=== PATIENT | female | born 1985 | race Hispanic/Latino ===

== ENCOUNTER 2019-06-08 09:11 | Inpatient (IN) | payer BC, OTHER ==
[2019-06-08] MEDS ORDERED: Ringers Lactate 1,000 ML IV ONE ×2 (09:15→09:34)
[2019-06-08] MEDS ORDERED: MAGNESIUM SULF/STERILE WATER 1,000 ML IV ONE (09:34)
[2019-06-08] MEDS ORDERED: LABETALOL 20 MG/4ML SYRINGE IV ONE ×2 (09:37→09:54)
[2019-06-08] MEDS ORDERED: MAGNESIUM SULF/STERILE WATER 1,000 ML IV SCH (10:00)
[2019-06-08] MEDS ORDERED: NA CIT/CITRIC AC 30 ML ORAL UDC ONE (10:31)
[2019-06-08] MEDS ORDERED: METOCLOPRAMIDE 10 MG/2mL INJ ONE (10:31)
[2019-06-08] MEDS ORDERED: FAMOTIDINE 20 MG/2 ML VIAL IV ONE ×2 (10:31→10:32)
[2019-06-08] MEDS ORDERED: CEFAZOLIN/SWI 2gm 2 GM/20 ML SYR ONE (10:32)
--- NOTE | 2019-06-08 10:47 | P.OBGYNHP ---
Certification for Inpatient Patient admitted to: Inpatient With expected LOS: >2 Midnights Patient will require the following post-hospital care: None Practitioner: I am a practitioner with admitting privileges, knowledge of patient current condition, hospital course, and medical plan of care. Services: Services provided to patient in accordance with Admission requirements found in Title 42 Section 412.3 of the Code of Federal Regulations Patient History Date of Service: 06/08/19 Reason for admission: SEVERE PREECLAMPSIA History of Present Illness: Patient is a 33-year-old who presents at 36 weeks and 1 day gestation with severe preeclampsia. She has obtained care at [facility]. Patient presents to the emergency department with complaints of chest pain. I was then notified 1 hr later by the ED physician that the patient was down in the emergency room for this issue. I immediately requested that the patient be sent to Labor and delivery. Patient states that overnight she has been having this discomfort in her chest that began yesterday is a heavy feeling in her chest and then it woke her up again and 7:00 a.m.. She also had some vomiting. She states she does not feel any contractions. She denies leakage of fluid. She reports good movements. She states she has been taking medication for hypertension twice a day. She states she was told on Sunday that she has gestational diabetes. She was instructed to begin taking the medication however she did not take that medication up yet and therefore has not started it. Upon arrival to Labor and delivery her blood pressure was found to be 2006/129. Repeat blood pressure was at 191/123. 2 doses of labetalol 20 mg were given and magnesium was started immediately. 4 g load was given and then a 2 g maintenance was started. I then contacted the patient's primary OB practice. I spoke to Dr. Salas. I requested that the patient be transferred to [facility] however they felt uncomfortable due to the elevated blood pressures. Therefore I began to proceed to admit the patient for emergency delivery. Allergies No Known Allergies Allergy (Unverified 06/08/19 09:14) - Past Medical/Surgical History -: DENIES Past Surgical History: Patient denies surgical history - Social History Smoking Status: Never smoker Review of Systems 10-point ROS is otherwise unremarkable Physical Examination - Vital Signs Blood Pressure: 185/111 Pulse: 75 Respirations: 18 Pulse Ox (%): 99 Laboratory Tests 06/08/19 06/08/19 06/08/19 08:10 08:10 10:06 WBC 16.5 H Hgb 16.2 H Hct 47.2 H Plt Count 209 Uric Acid 7.8 H AST 184 H ALT 120 H Assessment and Plan - Advance Directives Does patient have a Living Will: No Does patient have a Durable POA for Healthcare: No
[2019-06-08] MEDS ORDERED: NA CHLORIDE 0.9% 1,000 ML ONE ×2 (11:14→11:48)
[2019-06-08] MEDS ORDERED: METHYLERGONOVINE 0.2MG/ML AMP IM ONE (11:20)
[2019-06-08] MEDS ORDERED: CARBOPROST TROME 250 MCG/ML IM ONE (11:20)
[2019-06-08] MEDS ORDERED: BISACODYL 10 MG RECTAL SUPP RECT PRN (11:58)
[2019-06-08] MEDS ORDERED: DOCUSATE NA/SENNA CONC 1 TAB PO PRN (11:58)
[2019-06-08] MEDS ORDERED: CARBOPROST TROME 250 MCG/ML IM PRN (11:58)
[2019-06-08] MEDS ORDERED: ACETAMINOPHEN 500 MG TAB PO PRN (11:58)
[2019-06-08] MEDS ORDERED: ONDANSETRON 4 MG (ODT) TAB PO PRN (11:58)
[2019-06-08] MEDS ORDERED: IBUPROFEN 400 MG TAB PO PRN (12:01)
--- NOTE | 2019-06-08 12:03 | P.OP ---
Nuclear Waste Management Engineer: Neisha Sparks Preoperative diagnosis: Severe Preeclampsia 36 weeks gestation remote from delivery Primary procedure: Primary low transverse section Anesthesia: Damon, Dr. Sanders Estimated blood loss: 800cc Specimen: Cord blood, Placenta Findings: Viable female, cephalic, 9/9, 6lb 50z Operative Technique: The patient was taken to the operating room where spinal anesthesia was administered without difficulty. The patient was prepped and draped in the usual sterile fashion in the dorsal supine position with a leftward tilt. A Pfannenstiel skin incision was made with the scalpel and carried through to the underlying layer of fascia using the scalpel. The fascia was incised in the midline and extended laterally using Cuevas scissors. Morgan clamps were used to elevate the superior aspect of the fascial incision, which was elevated, and the underlying rectus muscles were dissected off bluntly and using Cuevas scissors. Attention was then turned to the inferior aspect of the fascial incision, which in similar fashion was grasped with Morgan clamps, elevated, and the underlying rectus muscles were dissected off bluntly and using the Bovie. The rectus muscles were dissected in the midline. The peritoneum was identified and entered using Metzenbaum scissors; this incision was extended superiorly and inferiorly with good visualization of the bladder. The bladder blade was inserted. The vesicouterine peritoneum was identified and entered sharply using Metzenbaum scissors. This incision was extended laterally and the bladder flap was created digitally. The bladder blade was reinserted. The lower uterine segment was incised in a transverse fashion using the scalpel and extended using bandage scissors as well as manual traction. Clear fluid was noted. The was subsequently delivered. The nose and mouth were bulb suctioned. The cord was clamped and cut. The infant was subsequently handed to the awaiting nursery nurse. The placenta was delivered spontaneously intact with a three-vessel cord noted. The uterus was exteriorized and cleared of all clots and debris. The uterine incision was repaired in 2 layers using 0 vicryol sutures. Hemostasis was visualized. The vesicouterine peritoneum was reapproximated with 3 O Vicryl. The uterus was returned to the abdomen. The uterine incision was reexamined and it was noted to be hemostatic. The rectus muscles were reapproximated in the midline using 0 Vicryl. The fascia was closed with 1 Vicryl suture, the subcutaneous layer was closed with 2-0 plain gut, and the skin was closed with 3 O Vicryl on a Nigel needle. Sponge, lap, and instrument counts were correct x2. The patient was stable at the completion of the procedure and was subsequently transferred to the recovery room in stable condition. Complications: None Drain(s): Urinary catheter Transferred to: Recovery Room Condition: Good
[2019-06-08 13:18] LABS: Urine Appearance CLOUDY; Urine Blood 2+ (NEG); Urine Color ORANGE; Urine Glucose NEGATIVE (NEG); Urine Protein 2+ (NEG)
[2019-06-08 13:20] LABS: Urine Bilirubin 1+ (NEG); Urine Microscopic Reflex ORDER UMIC
[2019-06-08 13:27] LABS: Urine Bacteria <20 /HPF (<20); Urine Culture Reflex Order REFLEXED; Urine Mucus LIGHT /HPF (NONE SEEN)
[2019-06-08 13:28] LABS: Urine Amorphous Sediment 1+ /HPF (NONE SEEN)
[2019-06-08 18:04] VITALS: BMI 37.6
[2019-06-09] MEDS: KETOROLAC 30 MG/ML INJ IV PRN ×3 (02:10→20:11)
[2019-06-09 04:43] LABS: Bilirubin Total 1.7 mg/dL (0.2-1.0); Potassium 4.1 mmol/L (3.5-5.1); Protein, Total 5.4 g/dL (6.4-8.2)
[2019-06-09 05:38] LABS: Absolute Lymphocytes (CBC) 2.9 K/uL (0.7-4.9); Basophils % 0.3 % (0-1.3); Hematocrit 35.1 % (36.0-45.0); Lymphocytes % 24.1 % (15.3-44.8); MPV 8.3 fL (7.6-11.3); RBC Red Blood Cell Count 4.24 M/uL (3.86-4.86)
[2019-06-09 06:21] LABS: Anisocytosis 1+; Blood Morphology Comment NOTED (NOT SEEN); Platelet Estimate DECR; Poikilocytosis 1+; Urine White Blood Cell Casts OK
[2019-06-09 08:11] LABS: Absolute Lymphocytes (CBC) 2.1 K/uL (0.7-4.9); Basophils % 0.2 % (0-1.3); Hematocrit 35.7 % (36.0-45.0); Lymphocytes % 19.6 % (15.3-44.8); MPV 8.4 fL (7.6-11.3); RBC Red Blood Cell Count 4.36 M/uL (3.86-4.86)
[2019-06-09 08:14] LABS: Protime INR 0.93
[2019-06-09 08:23] LABS: Albumin 1.9 g/dL (3.4-5.0); Bilirubin Direct 0.9 mg/dL (0-0.2); Bilirubin Total 1.3 mg/dL (0.2-1.0); Protein, Total 5.4 g/dL (6.4-8.2); Uric Acid 7.3 mg/dL (2.6-6.0)
[2019-06-09] MEDS: Ringers Lactate 1,000 ML IV SCH ×2 (08:40→19:00)
[2019-06-09] MEDS ORDERED: LABETALOL HCL 100 MG/20 ML IV ONE (09:40)
[2019-06-09] MEDS: Oxycodone HCl/Acetaminophen 1 TAB TAB PO PRN ×3 (10:00→18:00)
[2019-06-09] MEDS ORDERED: LABETALOL HCL 100 MG TAB PO SCH (10:00)
[2019-06-09] MEDS ORDERED: LABETALOL HCL 100 MG/20 ML ONE (10:01)
[2019-06-09 12:46] LABS: Absolute Lymphocytes (CBC) 2.2 K/uL (0.7-4.9); Basophils % 0.2 % (0-1.3); Hematocrit 32.4 % (36.0-45.0); Lymphocytes % 20.6 % (15.3-44.8); RBC Red Blood Cell Count 3.96 M/uL (3.86-4.86)
[2019-06-09 12:58] LABS: Protime INR 0.92
[2019-06-09 13:03] LABS: Albumin 1.8 g/dL (3.4-5.0); Bilirubin Direct 0.6 mg/dL (0-0.2); Potassium 3.9 mmol/L (3.5-5.1); Protein, Total 5.1 g/dL (6.4-8.2); Uric Acid 7.4 mg/dL (2.6-6.0)
[2019-06-09] MEDS ORDERED: PHENYLEPHRINE 0.5% NOSE 15ML NAS PRN (17:26)
[2019-06-09 17:47] LABS: Absolute Lymphocytes (CBC) 2.8 K/uL (0.7-4.9); Basophils % 0.5 % (0-1.3); Hematocrit 35.8 % (36.0-45.0); Lymphocytes % 26.1 % (15.3-44.8); MPV 8.8 fL (7.6-11.3); RBC Red Blood Cell Count 4.32 M/uL (3.86-4.86)
[2019-06-09] MEDS ORDERED: dexAMETHasone 10 MG/ML VIAL IM ONE (17:57)
[2019-06-09 18:03] LABS: ALT/SGPT 82 U/L (12-78)
[2019-06-09] MEDS ORDERED: Ringers Lactate 1,000 ML IV ONE (18:48)
[2019-06-09] MEDS ORDERED: Ringers Lactate 1,000 ML IV SCH (19:00)
--- NOTE | 2019-06-09 21:26 | P.PN ---
Date of Service: 06/09/19 Patient is a 33 y/o post op day 1 from emergent primary section due to severe preeclampsia remote from delivery. Overall the patient has been improving today. She is tolerating a regular diet. Her pain is well controlled. She did have a significant decrease in her platelet count since the delivery. Her urine output has been going well from 100-200cc per hour. Later in the day patient began to have a significant nose bleed. She saturated 2 large gauze pads. Once I was notified I requested that labs be repeated and the patient receive a nasal spray that has some vasocontriction such as afrin as well as ice packs. Patient received this treatment and responded well to it. Her bleeding has stopped. She also had some vaginal bleeding occur as well. Patient was then diagnosed with HELLP syndrome. Labs are revealing that her platelet count is increasing. Patient has been given 10 mg dexamethasone to help increase her platelet count. Magnesium sulfate has been discontinued. BP 141/83 Pulse 92 Laboratory Tests 06/09/19 06/09/19 06/09/19 04:08 04:08 04:08 WBC 12.1 H D Hgb 12.0 D Hct 35.1 L D Plt Count 74 L* D Magnesium 6.4 H* D Direct Bilirubin AST 131 H ALT 100 H Lactate Dehydrogenase 06/09/19 06/09/19 06/09/19 07:57 07:57 12:20 WBC 10.8 10.6 Hgb 12.3 11.1 L Hct 35.7 L 32.4 L Plt Count 74 L* 83 L* Magnesium Direct Bilirubin 0.9 H AST 111 H ALT 92 H Lactate Dehydrogenase 06/09/19 06/09/19 06/09/19 12:20 17:39 17:39 WBC 10.7 Hgb 12.1 Hct 35.8 L Plt Count 95 L* Magnesium Direct Bilirubin 0.6 H AST 91 H ALT 80 H 82 H Lactate Dehydrogenase 412 H GEN: resting comfortably in bed Head/Neck: NCAT/supple ABD: soft/ mildly tender, no garding; dressing in place EXT: +1 edema bilaterally 1. S/P primary section day 1 - merritt catheter removed - pain well managed - pt to begin ambulating - advanced to regular diet - trying to breast feed and bonding well with the baby - will remove dressing tomorrow 2. Severe preeclampsia superimposed on likely chronic hypertension - delivered - labetalol increased to 200mg BID -magnesium given for 24 hours - has been discontinued - patient is diuresing well - continue BP monitoring - repeat labs in AM 3. HELLP Syndrome - platelets now increasing - high dose steroids being given to increase platelet count and overall improvement in HELLP - liver enzymes improve - LDH at 412 - will repeat in AM along with all PIH labs
[2019-06-09] MEDS: LABETALOL HCL 100 MG TAB PO SCH (21:45)
[2019-06-09 22:45] VITALS: O2SAT 98
[2019-06-10] MEDS ORDERED: dexAMETHasone 10 MG/ML VIAL ONE (03:00)
[2019-06-10 04:28] LABS: Absolute Lymphocytes (CBC) 0.6 K/uL (0.7-4.9); Basophils % 0.1 % (0-1.3); Hematocrit 32.9 % (36.0-45.0); Lymphocytes % 5.7 % (15.3-44.8); MPV 8.8 fL (7.6-11.3); RBC Red Blood Cell Count 3.96 M/uL (3.86-4.86)
[2019-06-10 04:51] LABS: Albumin 2.2 g/dL (3.4-5.0); Bilirubin Total 0.5 mg/dL (0.2-1.0); Potassium 4.5 mmol/L (3.5-5.1)
[2019-06-10 04:53] LABS: Blood Morphology Comment NOT SEEN (NOT SEEN); Platelet Estimate DECR; Urine White Blood Cell Casts OK
[2019-06-10] MEDS ORDERED: dexAMETHasone 10 MG/ML VIAL IV ONE (06:00)
[2019-06-10] MEDS: Oxycodone HCl/Acetaminophen 1 TAB TAB PO PRN ×2 (06:12→20:00)
[2019-06-10] MEDS: LABETALOL HCL 100 MG TAB PO SCH ×2 (09:00→21:00)
[2019-06-10 19:00] LABS: Absolute Lymphocytes (CBC) 1.3 K/uL (0.7-4.9); Basophils % 0.3 % (0-1.3); Hematocrit 31.5 % (36.0-45.0); Lymphocytes % 9.9 % (15.3-44.8); MPV 8.8 fL (7.6-11.3)
[2019-06-10] MEDS ORDERED: dexAMETHasone 10 MG/ML VIAL IM ONE (19:00)
[2019-06-10 19:22] LABS: ALT/SGPT 59 U/L (12-78); AST/SGOT 43 U/L (15-37)
--- NOTE | 2019-06-10 22:10 | P.PN ---
Date of Service: 06/10/19 Patient is a 33 y/o post op day 2 from emergent primary section due to severe preeclampsia remote from delivery. Overall the patient is doing better. She is not having any more nose bleeds. Her vaginal bleeding is minimal. She is tolerating a regular diet. She is responding to treatment with steroids. IV fluids have been discontinued. BP 141/83 Pulse 92 Laboratory Tests Laboratory Tests 06/10/19 06/10/19 06/10/19 04:00 04:00 18:52 WBC 11.1 H 13.1 H D Hgb 11.1 L 10.6 L Hct 32.9 L 31.5 L Plt Count 96 L* 144 L D AST 59 H ALT 74 Lactate Dehydrogenase 365 H 06/10/19 18:52 WBC Hgb Hct Plt Count AST 43 H ALT 59 Lactate Dehydrogenase 314 H 06/09/19 06/09/19 06/09/19 04:08 04:08 04:08 WBC 12.1 H D Hgb 12.0 D Hct 35.1 L D Plt Count 74 L* D Magnesium 6.4 H* D Direct Bilirubin AST 131 H ALT 100 H Lactate Dehydrogenase 06/09/19 06/09/19 06/09/19 07:57 07:57 12:20 WBC 10.8 10.6 Hgb 12.3 11.1 L Hct 35.7 L 32.4 L Plt Count 74 L* 83 L* Magnesium Direct Bilirubin 0.9 H AST 111 H ALT 92 H Lactate Dehydrogenase 06/09/19 06/09/19 06/09/19 12:20 17:39 17:39 WBC 10.7 Hgb 12.1 Hct 35.8 L Plt Count 95 L* Magnesium Direct Bilirubin 0.6 H AST 91 H ALT 80 H 82 H Lactate Dehydrogenase 412 H GEN: resting comfortably in bed Head/Neck: NCAT/supple ABD: soft/ mildly tender, no garding; incision is clean, dry, and intact EXT: +1 edema bilaterally 1. S/P primary section day 2 - pain well managed - pt ambulating - regular diet - trying to breast feed and bonding well with the baby - dressing removed incision looks great 2. Severe preeclampsia superimposed on likely chronic hypertension - delivered - labetalol increased to 200mg BID -magnesium given for 24 hours - has been discontinued - patient is diuresing well - continue BP monitoring - repeat labs in AM 3. HELLP Syndrome - platelets now increasing - high dose steroids being given to increase platelet count and overall improvement in HELLP - liver enzymes, platelets and LDH all improving
[2019-06-11] MEDS: Oxycodone HCl/Acetaminophen 1 TAB TAB PO PRN ×2 (03:58→10:31)
[2019-06-11 04:41] LABS: Absolute Lymphocytes (CBC) 1.3 K/uL (0.7-4.9); Basophils % 0.1 % (0-1.3); Lymphocytes % 9.8 % (15.3-44.8); MPV 8.7 fL (7.6-11.3); RBC Red Blood Cell Count 3.57 M/uL (3.86-4.86)
[2019-06-11 05:07] LABS: Albumin 2.2 g/dL (3.4-5.0); Bilirubin Total 0.4 mg/dL (0.2-1.0); Potassium 4.4 mmol/L (3.5-5.1); Protein, Total 5.9 g/dL (6.4-8.2)
[2019-06-11] MEDS ORDERED: dexAMETHasone 10 MG/ML VIAL IV ONE (06:00)
[2019-06-11] MEDS ORDERED: dexAMETHasone 10 MG/ML VIAL IM ONE (06:00)
[2019-06-11] MEDS: LABETALOL HCL 100 MG TAB PO SCH ×2 (08:50→08:59)
[2019-06-11 12:24] VITALS: BP 154/82; TEMP 97.8
[2019-06-11] MEDS ORDERED: Tdap (Diph,Pertuss(Acell),Tet Vac) 0.5 ML SYR IMVAC ONE (12:40)
--- NOTE | 2019-06-11 21:58 | P.DS ---
Admission Date: 06/08/19 Discharge Date: 06/11/19 Disposition: ROUTINE DISCHARGE Discharge Condition: GOOD Reason for Admission: SEVERE PREECLAMPSIA Brief History of Present Illness: Patient is a 33-year-old who presents at 36 weeks and 1 day gestation with severe preeclampsia. She has obtained care at [facility]. Patient presents to the emergency department with complaints of chest pain. I was then notified 1 hr later by the ED physician that the patient was down in the emergency room for this issue. I immediately requested that the patient be sent to Labor and delivery. Patient states that overnight she has been having this discomfort in her chest that began yesterday is a heavy feeling in her chest and then it woke her up again and 7:00 a.m.. She also had some vomiting. She states she does not feel any contractions. She denies leakage of fluid. She reports good movements. She states she has been taking medication for hypertension twice a day. She states she was told on Sunday that she has gestational diabetes. She was instructed to begin taking the medication however she did not take that medication up yet and therefore has not started it. Upon arrival to Labor and delivery her blood pressure was found to be 2006/129. Repeat blood pressure was at 191/123. 2 doses of labetalol 20 mg were given and magnesium was started immediately. 4 g load was given and then a 2 g maintenance was started. I then contacted the patient's primary OB practice. I spoke to Dr. Salas. I requested that the patient be transferred to [facility] however they felt uncomfortable due to the elevated blood pressures. Therefore I began to proceed to admit the patient for emergency delivery. Vital Signs/Physical Exam: Temp Pulse Resp BP Pulse Ox 97.8 F 82 18 154/82 H 99 06/11/19 12:00 06/11/19 12:00 06/11/19 12:00 06/11/19 12:00 06/10/19 20:00 Laboratory Data at Discharge: WBC 13.4 K/uL (4.3-10.9) H 06/11/19 04:17 Hgb 10.2 g/dL (12.0-15.0) L 06/11/19 04:17 Hct 30.0 % (36.0-45.0) L 06/11/19 04:17 Plt Count 142 K/uL (152-406) L 06/11/19 04:17 PT 10.9 SECONDS (9.5-12.5) 06/09/19 12:20 INR 0.92 06/09/19 12:20 APTT 31.9 SECONDS (24.3-36.9) 06/09/19 12:20 Sodium 139 mmol/L (136-145) 06/11/19 04:17 Potassium 4.4 mmol/L (3.5-5.1) 06/11/19 04:17 BUN 18 mg/dL (7-18) 06/11/19 04:17 Creatinine 0.94 mg/dL (0.55-1.3) 06/11/19 04:17 Glucose 156 mg/dL (74-106) H 06/11/19 04:17 Uric Acid 7.4 mg/dL (2.6-6.0) H 06/09/19 12:20 Magnesium 6.4 mg/dL (1.8-2.4) H* D 06/09/19 04:08 Total Bilirubin 0.4 mg/dL (0.2-1.0) 06/11/19 04:17 AST 40 U/L (15-37) H 06/11/19 04:17 ALT 54 U/L (12-78) 06/11/19 04:17 Alkaline Phosphatase 139 U/L (45-117) H 06/11/19 04:17 Home Medications: Nifedipine [Nifedipine ER] 30 mg PO BID* 06/08/19 Pnv95/Ferrous Fumarate/FA [Prenavite Tablet] 1 each PO 1X 06/08/19 Codeine/APAP [Tylenol W/Codeine #3 tab] 1 tab PO Q6HP PRN #24 tab 06/11/19 Labetalol HCl [Trandate] 200 mg PO BID #60 tablet 06/11/19 New Medications: Codeine/APAP [Tylenol W/Codeine #3 tab] 1 tab PO Q6HP PRN #24 tab PRN Reason: Pain Scale 8-10 (Severe) Labetalol HCl [Trandate] 200 mg PO BID #60 tablet Diet: Low sodium Activity: No lifting more than 10 lbs Followup: Anam Mack, [ACTIVE - CAN ADMIT] - (Follow up in OB's office)
== END 2019-06-11 13:55 | disposition home or self-care (01) | DRG 788 ==
LOC: L&D 09:11 → 2ND-WC 10:03
PROVIDERS: ADMIT Student in an Organized Health Care Education/Training Program; ATTEND Student in an Organized Health Care Education/Training Program
PROC: 10D00Z1 Extraction of Products of Conception, Low, Open Approach (ICD-10-PCS; principal; 2019-06-08 10:50)
DX: O14.14 Severe pre-eclampsia complicating childbirth (principal); Z3A.36 36 weeks gestation of pregnancy; Z37.0 Single live birth
CPT/HCPCS: 36415; 71045; 80048; 80053; 80076; 81003; 81015; 83615; 83690; 83735; 83880; 84450; 84460; 84484; 84550; 85025; 85610; 85730; 86850; 86900; 86901; 87086; 87088; 88307; 90471; 90715; 93005; 96374; 96375; 99285; J0690; J1100; J2210; J2370; J2405; J2590; J2765; J3010; J3475; J7030

== ENCOUNTER → 2019-06-08 | Emergency (ER) | payer BC, OTHER ==
[~2019-06-08] MED LIST: EPHEDRINE SULF 50 MG/ML VIAL ONE; FENTANYL CITR 100 MCG/2 ML ONE; LABETALOL HCL 100 MG/20 ML ONE; MAGNE/ALUM HYDROXD 30 ML UCUP ONE; MORPHINE SULFATE/PF 1 MG/ML (10 ML AMP) ONE; ONDANSETRON 4 MG/2 ML VIAL ONE; OXYTOCIN 10 UNIT/ML ML IV ONE; Phenylephrine HCl 10 MG/ML 1 ML VIAL ONE
--- OUTSIDE RECORDS SUMMARY | 2019-06-08 07:52 | XMS REPORT ---
:1985 Author Organization eClinicalWorks Care Team Providers Name Role Phone Carleen Downey Provider Role Unavailable Allergies No Known Allergies Problems Problem Type Condition Code Onset Dates Condition Status Problem Hirsutism L68.0 Active Problem Infertility, female N97.9 Active Problem Amenorrhea N91.2 Active Problem BMI 39.0-39.9,adult Z68.39 Active Problem H/O polycystic ovarian syndrome Z87.42 Active Problem Secondary hypertension I15.9 Active Medications No Known Medications Results No Known Results Summary Purpose eClinicalWorks Submission
--- OUTSIDE RECORDS SUMMARY | 2019-06-08 07:52 | XMS REPORT ---
:1985 Author Organization eClinicalWorks Care Team Providers Name Role Phone Carleen Downey Provider Role Unavailable Allergies, Adverse Reactions, Alerts Substance Reaction Event Type N.K.D.A. Info Not Available Non Drug Allergy Problems Problem Type Condition Code Onset Dates Condition Status Assessment Infertility, female N97.9 Active Assessment H/O polycystic ovarian syndrome Z87.42 Active Assessment Amenorrhea N91.2 Active Problem Hirsutism L68.0 Active Problem Infertility, female N97.9 Active Problem Amenorrhea N91.2 Active Problem BMI 39.0-39.9,adult Z68.39 Active Assessment Well woman exam with routine Z01.419 Active gynecological exam Problem H/O polycystic ovarian syndrome Z87.42 Active Problem Secondary hypertension I15.9 Active Assessment Hirsutism L68.0 Active Assessment Secondary hypertension I15.9 Active Assessment BMI 39.0-39.9,adult Z68.39 Active Medications No Known Medications Results No Known Results Summary Purpose eClinicalWorks Submission
[2019-06-08 08:34] LABS: Absolute Lymphocytes (CBC) 4.5 K/uL (0.7-4.9); Basophils % 0.3 % (0-1.3); Eosinophils % 0.3 % (0-4.4); Hematocrit 47.2 % (36.0-45.0); Lymphocytes % 27.2 % (15.3-44.8); MPV 9.4 fL (7.6-11.3); Monocytes % 6.6 % (3.3-12.3); RBC Red Blood Cell Count 5.81 M/uL (3.86-4.86)
[2019-06-08 08:35] LABS: Protime INR 0.9
--- NOTE | 2019-06-08 08:40 | ER ---
Nurse's Notes [facility] Name: Lulu Becerra Age: 33 yrs Sex: Female : 1985 Arrival Date: 06/08/2019 Time: 07:54 Bed 5 Private MD: Diagnosis: Pre-eclampsia Presentation: 06/08 07:55 Presenting complaint: Patient states: i started having chest pain since yesterday, hj heavy feeling in my chest and i was awaken to it again this 7 am; pt is vomiting at triage; denies abd contraction and back pain; LMP- 09/26/18; 26 weeks AGE. Transition of care: patient was not received from another setting of care. Onset of symptoms was June 08, 2019. Risk Assessment: Do you want to hurt yourself or someone else? Patient reports no desire to harm self or others. Initial Sepsis Screen: Does the patient meet any 2 criteria? No. Patient's initial sepsis screen is negative. Does the patient have a suspected source of infection? No. Patient's initial sepsis screen is negative. Care prior to arrival: None. 07:55 Method Of Arrival: Ambulatory 07:55 Acuity: VITA 3 hj Triage Assessment: 07:55 General: Appears in no apparent distress. uncomfortable, Behavior is cooperative, bp anxious, crying. Pain: Complains of pain in chest. RENAL NURSE: 07:57 [facility] 09/26/2018 Historical: - Allergies: 07:57 No Known Allergies; - Home Meds: 07:57 None [Active]; - PMHx: 07:57 None; - PSHx: 07:57 None; - Immunization history:: Adult Immunizations up to date. - Social history:: Smoking status: Patient/guardian denies using tobacco, Patient/guardian denies using alcohol. - Ebola Screening: : Patient negative for fever greater than or equal to 101.5 degrees Fahrenheit, and additional compatible Ebola Virus Disease symptoms Patient denies exposure to infectious person Patient denies travel to an Ebola-affected area in the 21 days before illness onset. Screenin:55 Abuse screen: Denies threats or abuse. Denies injuries from another. Nutritional bp screening: No deficits noted. Tuberculosis screening: No symptoms or risk factors identified. Fall Risk None identified. Assessment: 07:57 General: Appears in no apparent distress. uncomfortable, Behavior is cooperative, bp anxious, crying. Pain: Complains of pain in chest Pain does not radiate. Pain currently is 10 out of 10 on a pain scale. Neuro: Level of Consciousness is awake, alert, obeys commands, Oriented to person, place, time, situation, Appropriate for age. Cardiovascular: Reports chest pain, shortness of breath, Capillary refill < 3 seconds Patient's skin is warm and dry. Respiratory: Airway is patent Respiratory effort is even, unlabored, Respiratory pattern is regular, symmetrical. GI: No signs and/or symptoms were reported involving the gastrointestinal system. : No signs and/or symptoms were reported regarding the genitourinary system. EENT: No signs and/or symptoms were reported regarding the EENT system. Derm: No signs and/or symptoms reported regarding the dermatologic system. Musculoskeletal: No signs and/or symptoms reported regarding the musculoskeletal system. 08:19 Reassessment: family requested to be transferred to [facility]; bp requested to contact OB [facility]; Dr. iVrgilio Christine, [phone];. Vital Signs: 07:57 Weight 93.44 kg; Height 5 ft. 2 in. (157.48 cm); Pain 10/10; hj 07:57 BP 167 / 133; Pulse 117; Resp 22; Temp 97.8(TE); Pulse Ox 100% on R/A; bp 08:20 BP 165 / 119; Pulse 80; Resp 18; Pulse Ox 98% on R/A; bp 08:27 BP 163 / 121; Pulse 85; Resp 22; Pulse Ox 98% ; Pain 7/10; bp 07:57 Body Mass Index 37.68 (93.44 kg, 157.48 cm) Vitals: 08:38 Heart Tones: 170bpm. dh3 ED Course: 07:54 Patient arrived in ED. mr 07:56 Triage completed. hj 07:57 Dalton Andrade, RN is Primary Nurse. hj 07:57 Arm band placed on right wrist. hj 07:57 Patient has correct armband on for positive identification. Placed in gown. Bed in low bp position. Call light in reach. Side rails up X 1. Adult w/ patient. 07:58 Virgilio Calabrese MD is Attending Physician. gs 08:13 Initial lab(s) drawn, by wa, sent to lab. Inserted saline lock: 20 gauge in right bp antecubital area, using aseptic technique. ,using aseptic technique. Arvin Hernandez RN. 08:25 XRAY Chest (1 view) In Process Unspecified. EDNE 08:38 Vandana Mack MD is Hospitalizing Provider. 09:01 No provider procedures requiring assistance completed. Patient admitted, IV remains in bp place. intact. Administered Medications: 08:15 Drug: Zofran 4 mg Route: IVP; Site: right antecubital; bp 08:35 Follow up: Response: Nausea is decreased bp 08:15 Drug: Maalox Suspension (200 mg-200 mg-20 mg/5 mL) 30 ml Route: PO; bp 08:35 Follow up: Response: No adverse reaction bp 08:15 Drug: Labetalol 10 mg Route: IVP; Site: right antecubital; bp 08:34 Follow up: Response: No adverse reaction; Blood pressure is unchanged bp 08:15 Drug: fentaNYL (PF) 25 mcg Route: IVP; Site: right antecubital; bp 08:34 Follow up: Response: Pain is unchanged, physician notified bp 08:32 Drug: Labetalol 10 mg Route: IVP; Site: right antecubital; bp 08:37 Follow up: Response: No adverse reaction hj 08:36 Not Given ( cancelled order; bring pt up to L\T\D;): Labetalol 20 mg IVP once over 2 hj mins Outcome: 08:38 Decision to Hospitalize by Provider. 09:01 Admitted to L \T\ D, accompanied by nurse, accompanied by tech, family with patient, via bp stretcher, on monitor, with chart, Report called to YANICK Fox 09:01 Condition: stable 09:01 Instructed on the need for admit, Demonstrated understanding of instructions. 09:02 Patient left the ED. bp Signatures: Dispatcher [employer] [facility] RadamesRajni Henry, RN RN hj Herrera, [facility] Virgilio Calabrese MD MD gs Peltier, Brian, RN RN bp Corrections: (The following items were deleted from the chart) 08:28 08:19 Reassessment: family requested to be transferred to [facility] bp Heck; requested to contact [facility]; bp
--- NOTE | 2019-06-08 08:40 | EDPHYS ---
Physician Documentation [facility] Name: Lulu Becerra Age: 33 yrs Sex: Female : 1985 Arrival Date: 06/08/2019 Time: 07:54 Bed 5 Private MD: ED Physician Virgilio Calabrese HPI: 06/08 08:40 This 33 yrs old Female presents to ER via Ambulatory with complaints of Chest gs Pain. 08:40 The patient or guardian reports chest pain that is located primarily in the epigastric gs area. The pain does not radiate. Associated signs and symptoms: Pertinent positives: shortness of breath. The chest pain is described as squeezing. Duration: The patient or guardian reports a single episode, that is now resolved. Modifying factors: The symptoms are alleviated by nothing. the symptoms are aggravated by nothing. Severity of pain: At its worst the pain was severe in the emergency department the pain is unchanged. The patient has not experienced similar symptoms in the past, onset last evening persistent more severe. COUNSELOR AID: 07:57 LMP 09/26/2018 Historical: - Allergies: 07:57 No Known Allergies; - Home Meds: 07:57 None [Active]; - PMHx: 07:57 None; - PSHx: 07:57 None; - Immunization history:: Adult Immunizations up to date. - Social history:: Smoking status: Patient/guardian denies using tobacco, Patient/guardian denies using alcohol. - Ebola Screening: : Patient negative for fever greater than or equal to 101.5 degrees Fahrenheit, and additional compatible Ebola Virus Disease symptoms Patient denies exposure to infectious person Patient denies travel to an Ebola-affected area in the 21 days before illness onset. ROS: 08:40 All other systems are negative. gs Exam: 08:40 Head/Face: Normocephalic, atraumatic. Eyes: Pupils equal round and reactive to light, gs extra-ocular motions intact. Lids and lashes normal. Conjunctiva and sclera are non-icteric and not injected. Cornea within normal limits. Periorbital areas with no swelling, redness, or edema. ENT: Nares patent. No nasal discharge, no septal abnormalities noted. Tympanic membranes are normal and external auditory canals are clear. Oropharynx with no redness, swelling, or masses, exudates, or evidence of obstruction, uvula midline. Mucous membranes moist. Neck: Trachea midline, no thyromegaly or masses palpated, and no cervical lymphadenopathy. Supple, full range of motion without nuchal rigidity, or vertebral point tenderness. No Meningismus. Chest/axilla: Normal chest wall appearance and motion. Nontender with no deformity. No lesions are appreciated. 08:40 Respiratory: Lungs have equal breath sounds bilaterally, clear to auscultation and percussion. No rales, rhonchi or wheezes noted. No increased work of breathing, no retractions or nasal flaring. Back: No spinal tenderness. No costovertebral tenderness. Full range of motion. Skin: Warm, dry with normal turgor. Normal color with no rashes, no lesions, and no evidence of cellulitis. MS/ Extremity: Pulses equal, no cyanosis. Neurovascular intact. Full, normal range of motion. Neuro: Awake and alert, GCS 15, oriented to person, place, time, and situation. Cranial nerves II-XII grossly intact. Motor strength 5/5 in all extremities. Sensory grossly intact. Cerebellar exam normal. Normal gait. 08:40 Constitutional: The patient appears alert, awake, in obvious distress, severely distressed. 08:40 Cardiovascular: Rate: tachycardic, Rhythm: regular. 08:40 ECG was reviewed by the Attending Physician. 08:40 Abdomen/GI: Inspection: gravid appearance, is noted, Palpation: nontender, in all quadrants, fht 170. Vital Signs: 07:57 Weight 93.44 kg; Height 5 ft. 2 in. (157.48 cm); Pain 10/10; hj 07:57 BP 167 / 133; Pulse 117; Resp 22; Temp 97.8(TE); Pulse Ox 100% on R/A; bp 08:20 BP 165 / 119; Pulse 80; Resp 18; Pulse Ox 98% on R/A; bp 08:27 BP 163 / 121; Pulse 85; Resp 22; Pulse Ox 98% ; Pain 7/10; bp 07:57 Body Mass Index 37.68 (93.44 kg, 157.48 cm) MDM: 08:06 Patient medically screened. 08:40 Differential diagnosis: gastroesophageal reflux disease (GERD), preeclampsia, gs eclampsia. Data reviewed: vital signs, nurses notes. 08:40 Response to treatment: the patient's symptoms have mildly improved after treatment, and gs as a result, I will admit patient. Physician consultation: Vandana Mack MD and will see patient ld. 06/08 08:08 Order name: Basic Metabolic Panel 06/08 08:08 Order name: CBC with Diff 06/08 08:08 Order name: LFT's 06/08 08:08 Order name: Magnesium 06/08 08:08 Order name: NT PRO-BNP 06/08 08:08 Order name: PT-INR; Complete Time: 08:39 gs 06/08 08:08 Order name: Troponin (emerg Dept Use Only) 06/08 08:08 Order name: XRAY Chest (1 view) 06/08 08:08 Order name: Lipase 06/08 08:08 Order name: Basic Metabolic Panel EDMO 06/08 08:08 Order name: CBC with Automated Diff; Complete Time: 08:39 EDMS 06/08 08:10 Order name: Liver (Hepatic) Function EDMS 06/08 08:10 Order name: Magnesium EDMO 06/08 07:57 Order name: EKG; Complete Time: 07:58 hj 06/08 08:08 Order name: EKG; Complete Time: 08:10 gs 06/08 08:08 Order name: Cardiac monitoring; Complete Time: 08:08 06/08 08:08 Order name: EKG - Nurse/Tech; Complete Time: 08:08 06/08 08:08 Order name: IV Saline Lock; Complete Time: 08:17 06/08 08:08 Order name: Labs collected and sent; Complete Time: 08:08 06/08 08:08 Order name: O2 Per Protocol; Complete Time: 08:09 06/08 08:08 Order name: O2 Sat Monitoring; Complete Time: 08:09 06/08 08:08 Order name: Heart Tones; Complete Time: 08:35 gs EC:40 Rate is 116 beats/min. Rhythm is regular. QRS interval is normal. No Q waves. T waves gs are Normal. No ST changes noted. Clinical impression: Abnormal EKG without significant change. Interpreted by me. Administered Medications: 08:15 Drug: Zofran 4 mg Route: IVP; Site: right antecubital; bp 08:35 Follow up: Response: Nausea is decreased bp 08:15 Drug: Maalox Suspension (200 mg-200 mg-20 mg/5 mL) 30 ml Route: PO; bp 08:35 Follow up: Response: No adverse reaction bp 08:15 Drug: Labetalol 10 mg Route: IVP; Site: right antecubital; bp 08:34 Follow up: Response: No adverse reaction; Blood pressure is unchanged bp 08:15 Drug: fentaNYL (PF) 25 mcg Route: IVP; Site: right antecubital; bp 08:34 Follow up: Response: Pain is unchanged, physician notified bp 08:32 Drug: Labetalol 10 mg Route: IVP; Site: right antecubital; bp 08:37 Follow up: Response: No adverse reaction hj 08:36 Not Given ( cancelled order; bring pt up to L\T\D;): Labetalol 20 mg IVP once over 2 hj mins Disposition: 06/08/19 08:38 Hospitalization ordered by Vandana Mack for Observation. Preliminary diagnosis is Pre-eclampsia. - [facility]. - Status is Observation. bp - Condition is Guarded. - Problem is new. - Symptoms have improved. UTI on Admission? No Signatures: Dispatcher [employer] EDMS Dalton Andrade RN RN Virgilio Calabrese MD MD Arvin Hernandez, RN RN bp Corrections: (The following items were deleted from the chart) 09:02 08:38 Hospitalization Ordered by Vandana Mack MD for Observation. Preliminary diagnosis bp is Pre-eclampsia. Bed requested for [facility]. Status is Observation. Condition is Guarded. Problem is new. Symptoms have improved. UTI on Admission? No.
[2019-06-08 08:56] LABS: ALT/SGPT 120 U/L (12-78); AST/SGOT 184 U/L (15-37); Albumin 2.6 g/dL (3.4-5.0); Alkaline Phosphatase 230 U/L (45-117); BUN Blood Urea Nitrogen 10 mg/dL (7-18); Bicarbonate 20 mmol/L (21-32); Bilirubin Direct 0.9 mg/dL (0-0.2); Bilirubin Total 1.4 mg/dL (0.2-1.0); Glucose Level 135 mg/dL (74-106); Lipase 376 U/L (73-393); Magnesium 1.9 mg/dL (1.8-2.4); NT PRO-BNP 31 pg/mL (<125); Potassium 3.8 mmol/L (3.5-5.1); Protein, Total 7.3 g/dL (6.4-8.2); Sodium Level 141 mmol/L (136-145); Troponin (Emerg Dept Use Only) < 0.02 ng/mL (0.0-0.045)
[2019-06-08 09:09] VITALS: TEMP 97.8
[2019-06-08 09:10] VITALS: O2SAT 98
[2019-06-08 09:12] VITALS: BP 163/121
--- NOTE | 2019-06-08 13:01 | RAD REPORT ---
EXAM DESCRIPTION: RAD - Chest Single View - 06/08/2019 8:24 am CLINICAL HISTORY: CHEST PAIN Chest pain. COMPARISON: No comparisons FINDINGS: Portable technique limits examination quality. The lungs are grossly clear. The heart is normal in size. No displaced fractures. IMPRESSION: No acute intrathoracic process suspected.
--- NOTE | 2019-06-09 10:22 | EKG ---
Test Date: 2019-06-08 Test Time: 07:54:21 Certified Cytotechnologist: ED MEASUREMENT RESULTS: Intervals: Rate: 116 NJ: 114 QRSD: 68 QT: 312 QTc: 433 [place]: P: 70 NJ: 114 QRS: 68 T: 57 INTERPRETIVE STATEMENTS: Sinus tachycardia Otherwise normal ECG No previous ECG available for comparison Electronically Signed On 06-09-19 10:23:33 CDT by Coleman Lau
== END ==
LOC: ER 07:49
DX: O14.90 Unspecified pre-eclampsia, unspecified trimester (principal); Z3A.00 Weeks of gestation of pregnancy not specified
CPT/HCPCS: 36415; 71045; 80048; 80076; 83690; 83735; 83880; 84484; 85025; 85610; 93005; 96374; 96375; 99285; J2370; J2405; J2590; J3010

== ENCOUNTER 2020-12-26 20:44 | Emergency (ER) | payer BC, OTHER ==
--- OUTSIDE RECORDS SUMMARY | 2020-12-26 20:47 | XMS REPORT | Continuity of Care Document ---
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 [facility] Amenorrhea Amenorrhea Problem Active [facility] Hirsutism Hirsutism Problem [facility] BMI BMI Problem Active [facility] 39.0-39.9, 39.0-39.9, Yolanda kes - adult adult [facility] Secondary Secondary Problem Active [facility] hypertensi hypertensi Yolanda kes - on on [facility] Allergies, Adverse Reactions, Alerts Allergy Allergy Status Severity Reaction(s) Onset Inactive Treating Comm ents Source Name Type Date Date Clinician No Known DA Active [facility] [place] Medications This patient has no known medications. Procedures This patient has no known procedures. Encounters Start End Encounter Admission Attending Care Care Encounter Source Date/Time Date/Time Type Type Clinicians Facility Department ID 2018-12-09 2018-12-09 [facility] [id number] 08:40:00 08:40:00 t [facility] L es - [facility] Outpati ent [facility] 2018-03-20 2018-03-20 Outpatient Jose Mendoza [id number] 14:30:00 14:30:00 t [facility] Results Test Description Test Time Test Comments Results Result Sour e Comments - CTA CHEST FOR PE 2019-06-25 Patient Name: 12:27:00 RYAN DEVRIES Unit No: [id number] EXAMS: CPT CODE: [id number] [place] [id number] CLINICAL HISTORY: Chest pain. COMPARISON: Chest x-ray performed on the same day. Computed tomography of chest was performed following administration of 100 mL of Isovue-300 using pulmonary embolism protocol. Coronal and sagittal reformats were performed. Right and left oblique MIPS images were performed for pulmonary vasculature. 3-D rendering images of pulmonary vessels was also performed. One or more of the following dose techniques were utilized; automated exposure control, adjustment of the mA and/or kV according to patient size, and/or utilization of iterative reconstruction technique. DLP: 723.83 mGy-cm. Heart and mediastinal structures appear normal. There is no evidence of mediastinal mass or adenopathy. Pulmonary vasculature is well-opacified. No evidence of pulmonary embolism is seen. Mild dependent hypoventilatory changes are present posteriorly at lung bases. No evidence of pulmonary vascular congestion, pleural effusion, pulmonary consolidation or interstitial edema is seen. Visualized bony structures appear normal. IMPRESSION: No evidence of pulmonary embolism or other significant abnormality is noted. at 1227 Reported and signed by: Mahendra Still MD CC: Tigist Nolasco MD; Virgilio Christine Technologist: Marty Becker RT, CT CTDI: 24.69 DLP: 723.83 Trnscrbd D/ (1227) tANNIE [facility] NAME: RYAN DEVRIES Radiology Department PHYS: CANAL. Tigist Nolasco MD [address] : 1985 AGE: 33 SEX: F [place], [place] [address] LOC: BhavanaERS PHONE #: [phone] EXAM DATE: 06/25/2019 STATUS: REG ER FAX #: [phone] RAD NO: Page 1 Signed Report 1 Patient Name: RYAN DEVRIES Unit No: [id number] EXAMS: CPT CODE: [id number] [place] [id number] <Continued> Orig Print D/T: S: 06/25/2019 (1231) [facility] NAME: RYAN DEVRIES Radiology Department PHYS: Tigist Tariq MD [address] : 1985 AGE: 33 SEX: F [place], [place] [address] LOC: DANIA PHONE #: [phone] EXAM DATE: 06/25/2019 STATUS: REG ER FAX #: [phone] RAD NO: Page 2 Signed Report 1 URINALYSIS DIPSTICK 2019-06-25 11:59:00 Test Item Value Reference Range Interpretation Comme nts UA COLOR (test code = COLU) YELLOW YELLOW UA APPEARANCE (test code = APPU) CLEAR CLEAR UA GLUCOSE DIPSTICK (test code = DGLUU) NEGATIVE NEGATIVE UA BILIRUBIN DIPSTICK (test code = BILU) NEGATIVE NEGATIVE UA KETONE DIPSTICK (test code = KETU) NEGATIVE NEGATIVE UA SPECIFIC GRAVITY (test code = SGU) <= 1.005 1.001-1.035 N UA BLOOD DIPSTICK (test code = BELGICA) 3+ NEGATIVE A UA PH DIPSTICK (test code = MATY) 6.0 5-9 UA PROTEIN DIPSTICK (test code = PROU) NEGATIVE NEGATIVE UA UROBILINIOGEN DIPSTICK (test code = URO) 0.2 EU/dL <=1.0 UA NITRITE DIPSTICK (test code = HEATHER) NEGATIVE NEGATIVE UA LEUKOCYTE ESTERASE DIPSTICK (test code = LEUU) 3+ NEGA TIVE A B-TYPE NATRIURETIC [id number] 10:57:00 Test Item Value Reference Range Interpretation Comments B-TYPE NATRIURETIC PEPTIDE (test 46.69 pg/mL 0-100 N code = BNP) CHEMISTRY 7 [id number] 10:38:00 Test Item Value Reference Range Interpretation Comments SODIUM (test code = NA) 140 mEq/L 135-145 N POTASSIUM (test code = K) 4.2 mEq/L 3.5-5.0 N CHLORIDE (test code = CL) 106 mEq/L 100-115 N CARBON DIOXIDE (test code = CO2) 24 mEq/L 22-31 N ANION GAP (test code = GAP) 14.40 10-20 N GLUCOSE (test code = GLU) 117 mg/dL 65-110 H BLOOD UREA NITROGEN (test code = 9 mg/dL 7-18 N BUN) GLOMERULAR FILTRATION RATE (test 64 ml/min >60 N code = GFR) CREATININE (test code = CREAT) 1.0 mg/dL 0.5-1.0 N CALCIUM (test code = CA) 9.0 mg/dL 8.4-10.2 N LIVER [id number] 10:38:00 Test Item Value Reference Range Interpretation Comments TOTAL PROTEIN (test code = PROT) 7.2 gm/dL 6.3-8.2 N ALBUMIN (test code = ALB) 3.5 gm/dL 3.4-4.8 N BILIRUBIN TOTAL (test code = 0.4 mg/dL 0.2-1.0 N BILT) BILIRUBIN DIRECT (test code = 0.1 mg/dL <0.2 N BILD) SGOT/AST (test code = AST) 25 units/L 15-37 N SGPT/ALT (test code = ALT) 23 units/L 12-78 N ALKALINE PHOSPHATASE TOTAL (test 119 units/L 46-116 H code = ALKP) URIC [id number] 10:38:00 Test Item Value Reference Range Interpretation Comments URIC ACID (test code = URIC) 8.3 mg/dL 2.6-6.0 H CREATINE KINASE (CK)2019-06-25 10:38:00 Test Item Value Reference Range Interpretation Comments CREATINE KINASE (CK) (test code = 111 Units/L 26-192 N CK) LACTIC DEHYDROGENASE(LDH)2019-06-25 10:38:00 Test Item Value Reference Range Interpretation Comments LACTIC DEHYDROGENASE(LDH) (test 212 units/L 81-234 N code = LDH) [id number] 10:38:00 Test Item Value Reference Range Interpretation Comments TROPONIN-I (test code = TROPI) <0.017 ng/mL <0.056 N PROTHROMBIN [id number] 10:36:00 Test Item Value Reference Range Interpretation Comments PROTHROMBIN TIME PATIENT (test code 11.1 secs 10.4-12.4 N = PTP) IS PATIENT ON ANTICOAGULANTS ? NINTERNATIONAL NORMAL [id number] 10:36:00 Test Item Value Reference Range Interpretation Comments INTERNATIONAL NORMAL 1.00 The INR is to be used RATIO (test code = INR) only for monitoring oral anticoagulantth erapy. INDICATION INR VALUE 1. Prophylaxis inc luding high risk guerrero rgery 2.0 - 2.52. Deep venous thr ombosis. Pulmonary em bolism. Atrial fibrilla tion or bioprostheti c heart valves 2.0 - 3.03. Mechanical hear t valves or recurren t systemic emboli sm. 3.0 - 3.5 IS PATIENT ON ANTICOAGULANTS ? NTHROMBOPLASTIN TIME [id number] 10:36:00 Test Item Value Reference Range Interpretation Comments THROMBOPLASTIN TIME PARTIAL (test 32.3 secs 22-38 N code = PTT) IS PATIENT ON ANTICOAGULANTS ? ND-DIMER [id number] 10:36:00 Test Item Value Reference Range Interpretation Comments D-DIMER QUANT 277 ng/mLDDU <255 H (test code = Refere nce DDIMER) Range in : &lt ;570 ng/ml A positive test d oes not provide a defin itive diagnosis ofDVT and indicates the n eed for follow up clini randal studies. The pr edictive value of a nega tive test is 98% for rulingout DVT. IS PATIENT ON ANTICOAGULANTS ? NCHEMISTRY 7 [id number] 10:32:00 Test Item Value Reference Range Interpretation Comments SODIUM (test code = NA) 140 mEq/L 135-145 N POTASSIUM (test code = K) 4.2 mEq/L 3.5-5.0 N CHLORIDE (test code = CL) 106 mEq/L 100-115 N CARBON DIOXIDE (test code = CO2) 24 mEq/L 22-31 N ANION GAP (test code = GAP) 14.40 10-20 N GLUCOSE (test code = GLU) 117 mg/dL 65-110 H BLOOD UREA NITROGEN (test code = 9 mg/dL 7-18 N BUN) GLOMERULAR FILTRATION RATE (test 64 ml/min >60 N code = GFR) CREATININE (test code = CREAT) 1.0 mg/dL 0.5-1.0 N CALCIUM (test code = CA) 9.0 mg/dL 8.4-10.2 N LIVER [id number] 10:32:00 Test Item Value Reference Range Interpretation Comments TOTAL PROTEIN (test code = PROT) 7.2 gm/dL 6.3-8.2 N ALBUMIN (test code = ALB) 3.5 gm/dL 3.4-4.8 N BILIRUBIN TOTAL (test code = 0.4 mg/dL 0.2-1.0 N BILT) BILIRUBIN DIRECT (test code = 0.1 mg/dL <0.2 N BILD) SGOT/AST (test code = AST) 25 units/L 15-37 N SGPT/ALT (test code = ALT) 23 units/L 12-78 N ALKALINE PHOSPHATASE TOTAL (test 119 units/L 46-116 H code = ALKP) URIC [id number] 10:32:00 Test Item Value Reference Range Interpretation Comments URIC ACID (test code = URIC) 8.3 mg/dL 2.6-6.0 H CREATINE KINASE (CK)2019-06-25 10:32:00 Test Item Value Reference Range Interpretation Comments CREATINE KINASE (CK) (test code = 111 Units/L 26-192 N CK) LACTIC DEHYDROGENASE(LDH)2019-06-25 10:32:00 Test Item Value Reference Range Interpretation Comments LACTIC DEHYDROGENASE(LDH) (test 212 units/L 81-234 N code = LDH) [id number] 10:32:00 Test Item Value Reference Range Interpretation Comments TROPONIN-I (test code = TROPI) ng/mL <0.056 - XR CHEST 1 [id number] 10:20:00 Patient Name: RYAN DEVRIES Unit No: [id number] EXAMS: CPT CODE: [id number] XR CHEST 1 V 11650 CHEST 1 VIEW: 06/25/2019 COMPARISON: NONE CLINICAL HISTORY: CHEST PAIN FINDI NGS: The cardiovascular silhouette is normal in size. No infiltrates or pulmonary edema is present. There is no pneumothorax. IMPRESSION: No acute pulmonary disease. at 1020 Reported and signed by: Cesar Still MD CC: Tigist Nolasco MD; Virgilio Christine Technologist: Arik Diaz, Rt Trnscrbd D/ (1020) [id number] Orig Print D/T: S: 06/25/2019 (1023) [facility] NAME: RYAN DEVRIES Radiology Department PHYS: Tigist Tariq MD [address] : 1985 AGE: 33 SEX: F [place], [place] [address] LOC: DANIA PHONE#: [phone] EXAM DATE: 06/25/2019 STATUS: REG ER FAX #: [phone] RAD NO: Page 1 Signed ReportCBC W/AUTO [id number] 10:12:00 Test Item Value Reference Range Interpretation Comments WHITE BLOOD CELL (test code = WBC) 7.0 K/mm3 6.6-12.1 N RED BLOOD CELL (test code = RBC) 4.59 M/mm3 3.45-5.01 N HEMOGLOBIN (test code = HGB) 12.7 g/dL 10.7-13.9 N HEMATOCRIT (test code = HCT) 38.4 % 32.1-42.1 N MEAN CELL VOLUME (test code = MCV) 84 fL 84.1-94.8 L MEAN CELL HGB (test code = MCH) 27.7 pg 27-35 N MEAN CELL HGB CONCETRATION (test 33.1 gm/dL 32.2-34.1 N code = MCHC) RED CELL DISTRIBUTION WIDTH (test 13.9 % 12.4-16.5 N code = RDW) PLATELET COUNT (test code = PLT) 286 K/mm3 133-385 N IMMATURE PLATELET FRACTION (test 0.0 % 0.0-10.8 N code = IPF) MEAN PLATELET VOLUME (test code = 8.8 fl 9.1-12.7 L MPV) NEUTROPHIL % (test code = NT%) 63.1 % 56.5-79.4 N LYMPHOCYTE % (test code = LY%) 29.4 % 14.3-34.3 N MONOCYTE % (test code = MO%) 4.6 % 5.1-10.4 L EOSINOPHIL % (test code = EO%) 1.9 % 0.1-3.0 N BASOPHIL % (test code = BA%) 0.6 % 0.1-1.0 N NEUTROPHIL # (test code = NT#) 4.4 K/mm3 LYMPHOCYTE # (test code = LY#) 2.1 K/mm3 MONOCYTE # (test code = MO#) 0.3 K/mm3 EOSINOPHIL # (test code = EO#) 0.13 K/mm3 BASOPHIL # (test code = BA#) 0.0 K/mm3 RBC MORPHOLOGY REQUIRED (test code NORMAL NORMAL = RBCM) PLATELET MORPHOLOGY REQUIRED (test NORMAL NORMAL code = PLTMR)
[2020-12-26 21:31] LABS: Absolute Lymphocytes (CBC) 3.9 K/uL (0.7-4.9); Basophils % 0.3 % (0-1.3); Hematocrit 37.8 % (36.0-45.0); Lymphocytes % 41.7 % (15.3-44.8); MPV 7.2 fL (7.6-11.3); RBC Red Blood Cell Count 4.77 M/uL (3.86-4.86)
[2020-12-26] MEDS ORDERED: NA CHLORIDE 0.9% 1,000 ML ONE (21:36)
[2020-12-26] MEDS ORDERED: ONDANSETRON 4 MG/2 ML VIAL ONE (21:36)
[2020-12-26] MEDS ORDERED: MORPHINE 4 MG/ML SYR ONE ×2 (21:36→23:59)
[2020-12-26] MEDS ORDERED: FAMOTIDINE 20 MG/2 ML VIAL IV ONE (21:36)
[2020-12-26 21:51] LABS: ALT/SGPT 37 U/L (12-78); AST/SGOT 21 U/L (15-37); Albumin 3.9 g/dL (3.4-5.0); Alkaline Phosphatase 112 U/L (45-117); BUN Blood Urea Nitrogen 13 mg/dL (7-18); Bicarbonate 26 mmol/L (21-32); Bilirubin Direct < 0.1 mg/dL (0-0.2); Bilirubin Total 0.3 mg/dL (0.2-1.0); Glucose Level 144 mg/dL (74-106); Lipase 68 U/L (73-393); Potassium 3.2 mmol/L (3.5-5.1); Protein, Total 8.2 g/dL (6.4-8.2); Sodium Level 139 mmol/L (136-145); Troponin (Emerg Dept Use Only) < 0.02 ng/mL (0.0-0.045)
[2020-12-26 23:19] LABS: Urine Blood 2+ (NEG); Urine Glucose NEGATIVE (NEG); Urine Protein NEGATIVE (NEG); Urine pH 7.5 (5.0-7.0)
[2020-12-26 23:22] LABS: Urine Bacteria <20 /HPF (<20); Urine RBC 20-50 /HPF (NONE SEEN); Urine Urothelial Cells <5 /HPF (NONE SEEN)
[2020-12-26] MEDS ORDERED: METOCLOPRAMIDE 10 MG/2mL INJ ONE (23:35)
--- NOTE | 2020-12-27 00:53 | ER ---
Nurse's Notes [facility] Name: Lulu Becerra Age: 35 yrs Sex: Female : 1985 Arrival Date: 12/26/2020 Time: 20:45 Bed 4 Private MD: Diagnosis: Cholelithiasis Presentation: 12/26 21:08 Chief complaint: Patient states: Reports epigastric pain that radiates to the back. ea Coronavirus screen: At this time, the client does not indicate any symptoms associated with coronavirus-19. Ebola Screen: No symptoms or risks identified at this time. Initial Sepsis Screen: Does the patient meet any 2 criteria? No. Patient's initial sepsis screen is negative. Does the patient have a suspected source of infection? No. Patient's initial sepsis screen is negative. Risk Assessment: Do you want to hurt yourself or someone else? Patient reports no desire to harm self or others. Onset of symptoms was December 26, 2020. 21:08 Method Of Arrival: Wheelchair ea 21:08 Acuity: VITA 3 ea 21:10 Coronavirus screen: Client denies travel out of the [place] in the last 14 days. Ebola rv Screen: Patient negative for fever greater than or equal to 101.5 degrees Fahrenheit, and additional compatible Ebola Virus Disease symptoms Patient denies exposure to infectious person. Patient denies travel to an Ebola-affected area in the 21 days before illness onset. DIRECTOR LABOR STANDARDS: 12/27 01:02 LMP 12/2020 rv - Immunization history:: Adult Immunizations up to date. - Social history:: Smoking status: Patient denies any tobacco usage or history of. Screenin/07 21:10 Abuse screen: Denies threats or abuse. Denies injuries from another. Nutritional rv screening: No deficits noted. Tuberculosis screening: No symptoms or risk factors identified. Fall Risk None identified. Assessment: 21:08 General: Appears uncomfortable, Behavior is calm, cooperative. Pain: Complains of pain rv in xyphoid area Pain does not radiate. Pain began gradually. Neuro: Level of Consciousness is awake, alert, obeys commands, Oriented to person, place, time, situation. Cardiovascular: Patient's skin is warm and dry. Rhythm is regular. Cardiovascular: Chest pain is described as severe, quality is pressure, is located in substernal area. Respiratory: Airway is patent Respiratory effort is even, unlabored, Breath sounds are clear bilaterally. Derm: Skin is intact. Vital Signs: 21:08 BP 209 / 115; Pulse 84; Resp 20; Temp 98.4; Pulse Ox 100% ; Weight 86.18 kg; Height 5 ea ft. 2 in. (157.48 cm); Pain 10/10; 23:45 BP 186 / 110; Pulse 70; Resp 17; Pulse Ox 97% on R/A; rr5 02 01:01 BP 185 / 86; Pulse 72; Resp 18; Temp 98; Pulse Ox 97% on R/A; rv 12/26 21:08 Body Mass Index 34.75 (86.18 kg, 157.48 cm) ea ED Course: 12/26 20:45 Patient arrived in ED. am4 20:55 Venkat Buitrago MD is Attending Physician. mh7 20:56 Amrin Booth, YANICK is Primary Nurse. rv 21:10 Triage completed. ea 21:10 Patient maintains SpO2 saturation greater than 95% on room air. ea 21:10 Patient has correct armband on for positive identification. Placed in gown. Bed in low ea position. Call light in reach. patient monitor on. Pulse ox on. NIBP on. 21:10 Patient placed in an exam room, on a stretcher, on cardiac exercise physiologist, on pulse oximetry. ea 21:11 No provider procedures requiring assistance completed. Initial lab(s) drawn, by ED rv staff, sent to lab. Inserted saline lock: 20 gauge in right antecubital area, using aseptic technique. Blood collected. BY LORETA MANAGER DATABASE. 21:51 Chest Single View XRAY In Process Unspecified. EDMS 23:15 CT Abd/Pelvis - IV Contrast Only In Process Unspecified. EDMS 12/27 00:52 Dalton Espinal MD is Referral Physician. mh7 01:02 IV discontinued, intact, bleeding controlled, No redness/swelling at site. Pressure rv dressing applied. Administered Medications: 12/26 21:20 Drug: NS 0.9% 1000 ml Route: IV; Rate: 1000 ml; Site: right antecubital; rr5 23:52 Follow up: IV Status: Completed infusion; IV Intake: 1000ml rv 21:20 Drug: Zofran (Ondansetron) 4 mg Route: IVP; Site: right antecubital; rr5 12/27 01:01 Follow up: Response: No adverse reaction rv 12/26 21:22 Drug: Pepcid 20 mg Route: IVP; Site: right antecubital; rr5 12/27 01:01 Follow up: Response: No adverse reaction rv 12/26 21:25 Drug: morphine 4 mg {Note: rass 0.} Route: IVP; Site: right antecubital; rr5 12/27 01:01 Follow up: Response: No adverse reaction; RASS: Alert and Calm (0) rv 12/26 23:24 Drug: Reglan 10 mg Route: IVP; Site: right antecubital; rv 12/27 01:01 Follow up: Response: Marked relief of symptoms rv 12/26 23:52 Drug: morphine 4 mg {Note: RASS 0.} Route: IVP; Site: right antecubital; rv 12/27 01:00 Follow up: Response: No adverse reaction; Pain is decreased; RASS: Alert and Calm (0) rv Intake: 12/26 23:52 IV: 1000ml; Total: 1000ml. rv Outcome: 12/27 00:52 Discharge ordered by MD. colunga 01:01 Discharged to home ambulatory. rv 01:01 Condition: good 01:01 Discharge instructions given to patient, Instructed on discharge instructions, follow up and referral plans. medication usage, Demonstrated understanding of instructions, follow-up care, medications, Prescriptions given X 4. 01:02 Patient left the ED. rv Signatures: Dispatcher [employer] EDMS Lacy Srinivasan RN RN ea Vicente, Ronaldo, RN RN rv Roque, Raymond, RN RN rr5 Venkat Buitrago MD MD mh7 Chica Espinal am4 Corrections: (The following items were deleted from the chart) 12/26 21:11 21:08 Chief complaint: rv rv
--- NOTE | 2020-12-27 00:54 | EDPHYS ---
Physician Documentation [facility] Name: Lulu Becerra Age: 35 yrs Sex: Female : 1985 Arrival Date: 12/26/2020 Time: 20:45 Bed 4 Private MD: ED Physician Venkat Buitrago HPI: 12/26 22:02 This 35 yrs old Female presents to ER via Wheelchair with complaints of Chest mh7 Pain. 22:02 The patient presents with abdominal pain in the epigastric area. Onset: The mh7 symptoms/episode began/occurred today. The symptoms radiate to back. 22:03 Associated signs and symptoms: Pertinent positives: nausea, Pertinent negatives: mh7 anorexia, blood in stools, chest pain, constipation, diarrhea, dysuria, fever, headache, hematuria, palpitations, shortness of breath, vaginal discharge, vomiting, vomiting blood. The symptoms are described as intermittent, vague, waxing/waning. Modifying factors: The symptoms are alleviated by nothing, the symptoms are aggravated by food. Severity of pain: At its worst the pain was moderate today, in the emergency department the pain is unchanged. 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 - Social history:: Smoking status: Patient denies any tobacco usage or history of. ROS: 12/26 22:03 Constitutional: Negative for fever, chills, and weight loss, Eyes: Negative for injury, mh7 pain, redness, and discharge, ENT: Negative for injury, pain, and discharge, Neck: Negative for injury, pain, and swelling, Cardiovascular: Negative for chest pain, palpitations, and edema, Respiratory: Negative for shortness of breath, cough, wheezing, and pleuritic chest pain, : Negative for injury, bleeding, discharge, and swelling, MS/Extremity: Negative for injury and deformity, Skin: Negative for injury, rash, and discoloration, Neuro: Negative for headache, weakness, numbness, tingling, and seizure, Psych: Negative for depression, anxiety, suicide ideation, homicidal ideation, and hallucinations, Allergy/Immunology: Negative for hives, rash, and allergies, Endocrine: Negative for neck swelling, polydipsia, polyuria, polyphagia, and marked weight changes, Hematologic/Lymphatic: Negative for swollen nodes, abnormal bleeding, and unusual bruising. Exam: 22:03 Head/Face: Normocephalic, atraumatic. Eyes: Pupils equal round and reactive to light, mh7 extra-ocular motions intact. Lids and lashes normal. Conjunctiva and sclera are non-icteric and not injected. Cornea within normal limits. Periorbital areas with no swelling, redness, or edema. Neck: Trachea midline, no thyromegaly or masses palpated, and no cervical lymphadenopathy. Supple, full range of motion without nuchal rigidity, or vertebral point tenderness. No Meningismus. Chest/axilla: Normal chest wall appearance and motion. Nontender with no deformity. No lesions are appreciated. Cardiovascular: Regular rate and rhythm with a normal S1 and S2. No gallops, murmurs, or rubs. Normal PMI, no JVD. No pulse deficits. Respiratory: Lungs have equal breath sounds bilaterally, clear to auscultation and percussion. No rales, rhonchi or wheezes noted. No increased work of breathing, no retractions or nasal flaring. 22:03 Back: No spinal tenderness. No costovertebral tenderness. Full range of motion. Skin: Warm, dry with normal turgor. Normal color with no rashes, no lesions, and no evidence of cellulitis. MS/ Extremity: Pulses equal, no cyanosis. Neurovascular intact. Full, normal range of motion. Neuro: Awake and alert, GCS 15, oriented to person, place, time, and situation. Cranial nerves II-XII grossly intact. Motor strength 5/5 in all extremities. Sensory grossly intact. Cerebellar exam normal. Normal gait. Psych: Awake, alert, with orientation to person, place and time. Behavior, mood, and affect are within normal limits. 22:03 Constitutional: The patient appears in no acute distress, alert, awake, uncomfortable. 22:03 Abdomen/GI: Inspection: abdomen appears normal, Bowel sounds: normal, in all quadrants, Palpation: moderate abdominal tenderness, in the epigastric area, Rectal exam: the exam is deferred, because of patient request, Indicators: McBurney's point is not tender, Obando's sign is negative, Rovsing's sign is negative, Obturator sign is negative, Psoas sign is negative, Liver: no appreciated palpable abnormalities, Hernia: not appreciated. Vital Signs: 21:08 BP 209 / 115; Pulse 84; Resp 20; Temp 98.4; Pulse Ox 100% ; Weight 86.18 kg; Height 5 ea ft. 2 in. (157.48 cm); Pain 10/10; 23:45 BP 186 / 110; Pulse 70; Resp 17; Pulse Ox 97% on R/A; rr5 12/27 01:01 BP 185 / 86; Pulse 72; Resp 18; Temp 98; Pulse Ox 97% on R/A; rv 12/26 21:08 Body Mass Index 34.75 (86.18 kg, 157.48 cm) ea MDM: 00:50 Differential diagnosis: cholecystitis, Cholelithiasis, diverticulitis, Ectopic mh7 , gastritis, gastroesophageal reflux disease, non-specific abd pain, pancreatitis, Peptic Ulcer Disease, Pyelonephritis, Ureterolithiasis, urinary tract infection. Data reviewed: vital signs, nurses notes. Data interpreted: Pulse oximetry: on room air is 97 %. Interpretation: normal. Counseling: I had a detailed discussion with the patient and/or guardian regarding: the historical points, exam findings, and any diagnostic results supporting the discharge/admit diagnosis, the presence of at least one elevated blood pressure reading (>120/80) during this emergency department visit, lab results, radiology results, the need for outpatient follow up, a general surgeon, to return to the emergency department if symptoms worsen or persist or if there are any questions or concerns that arise at home. Response to treatment: the patient's symptoms have resolved after treatment, the patient's blood pressure is in an acceptable range, mental status has returned to baseline, the patient no longer shows bradycardia, the patient is not short of breath, the patient is not tachycardic, the patient's pain is gone, the patient's temperature has normalized. 00:52 Patient medically screened. [facility] 12/26 21:17 Order name: Basic Metabolic Panel; Complete Time: 22:00 [facility] 12/26 21:17 Order name: CBC with Diff; Complete Time: 22:00 [facility] 12/26 21:17 Order name: Hepatic Function; Complete Time: 22:00 [facility] 12/26 21:17 Order name: Lipase; Complete Time: 22:00 [facility] 12/26 21:17 Order name: Troponin (emerg Dept Use Only); Complete Time: 22:00 [facility] 12/26 22:34 Order name: Urine Microscopic Only; Complete Time: 00:11 ds4 12/26 21:17 Order name: Chest Single View XRAY [facility] 12/26 22:02 Order name: CT Abd/Pelvis - IV Contrast Only [facility] 12/26 22:35 Order name: Urine Dipstick--Ancillary (enter results); Complete Time: 00:11 ds4 12/26 22:37 Order name: Urine --Ancillary (enter results) [facility] 12/26 22:37 Order name: Urine --Ancillary; Complete Time: 00:11 [facility] 12/26 21:17 Order name: IV Saline Lock; Complete Time: 21:18 [facility] 12/26 21:17 Order name: Labs collected and sent; Complete Time: 21:18 [facility] 12/26 21:17 Order name: Urine Dipstick-Ancillary (obtain specimen); Complete Time: 22:24 [facility] 12/26 21:17 Order name: Urine Test (obtain specimen); Complete Time: 22:24 [facility] 12/26 21:17 Order name: EKG - Nurse/Tech; Complete Time: 21:17 [facility] Administered Medications: 12/26 21:20 Drug: NS 0.9% 1000 ml Route: IV; Rate: 1000 ml; Site: right antecubital; rr5 23:52 Follow up: IV Status: Completed infusion; IV Intake: 1000ml rv 21:20 Drug: Zofran (Ondansetron) 4 mg Route: IVP; Site: right antecubital; rr5 12/27 01:01 Follow up: Response: No adverse reaction rv 12/26 21:22 Drug: Pepcid 20 mg Route: IVP; Site: right antecubital; rr5 12/27 01:01 Follow up: Response: No adverse reaction rv 12/26 21:25 Drug: morphine 4 mg {Note: rass 0.} Route: IVP; Site: right antecubital; rr5 12/27 01:01 Follow up: Response: No adverse reaction; RASS: Alert and Calm (0) rv 12/26 23:24 Drug: Reglan 10 mg Route: IVP; Site: right antecubital; rv 12/27 01:01 Follow up: Response: Marked relief of symptoms rv 12/26 23:52 Drug: morphine 4 mg {Note: RASS 0.} Route: IVP; Site: right antecubital; rv 12/27 01:00 Follow up: Response: No adverse reaction; Pain is decreased; RASS: Alert and Calm (0) rv Disposition: 12/27/20 00:52 Discharged to Home. Impression: Cholelithiasis. - Condition is Stable. - Discharge Instructions: Cholelithiasis, [id number]. - Prescriptions for Zofran ODT 4 mg Oral tablet,disintegrating - place 1 tablet by TRANSLINGUAL route every 8 hours As needed; 6 tablet. Bentyl 20 mg Oral Tablet - take 1 tablet by ORAL route every 6 hours As needed; 20 tablet. Ibuprofen 800 mg Oral Tablet - take 1 tablet by ORAL route every 8 hours As needed take with food; 15 tablet. Tylenol- Codeine #3 300-30 mg Oral Tablet - take 2 tablets by ORAL route every 6 hours As needed; 15 tablet. - Medication Reconciliation Form, Thank You Letter, Antibiotic Education, Prescription Opioid Use, Work release form form. - Follow up: Private Physician; When: 1 - 2 days; Reason: Worsening of condition, Recheck today's complaints, Continuance of care, Re-evaluation by your physician. Follow up: Dalton Espinal MD; When: 1 - 2 days; Reason: Worsening of condition, Recheck today's complaints, Continuance of care. - Problem is new. - Symptoms have improved. 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 Impression: Cholelithiasis. Condition is rv Stable. Forms are Medication Reconciliation Form, Thank You Letter, Antibiotic Education, Prescription Opioid Use. Follow up: Private Physician; When: 1 - 2 days; Reason: Worsening of condition, Recheck today's complaints, Continuance of care, Re-evaluation by your physician. Follow up: Dalton Espinal; When: 1 - 2 days; Reason: Worsening of condition, Recheck today's complaints, Continuance of care. Problem is new. Symptoms have improved. 7
[2020-12-27 01:16] VITALS: O2SAT 97
[2020-12-27 01:18] VITALS: BP 185/86; TEMP 98
--- NOTE | 2020-12-27 08:25 | RAD REPORT ---
EXAM DESCRIPTION: RAD - Chest Single View - 12/26/2020 9:51 pm CLINICAL HISTORY: CHEST PAIN Chest pain. COMPARISON: Chest Single View dated 06/08/2019 FINDINGS: Portable technique limits examination quality. Bilateral interstitial lung markings are mildly prominent. The heart is upper limit normal in size. N o displaced fractures. IMPRESSION: Mild nonspecific interstitial prominence noted.
--- NOTE | 2020-12-27 11:29 | RAD REPORT ---
EXAM DESCRIPTION: CT Abdomen and Pelvis With Intravenous Contrast CLINICAL HISTORY: The patient is 35 years old and is Female; ABD PAIN TECHNIQUE: Axial computed tomography images of the abdomen and pelvis with intravenous contrast. S agittal and coronal reformatted images were created and reviewed. This CT exam was performed using one or more of the following dose reduction techniques: automated exposure control, adjustment of t he mA and/or kV according to patient size, and/or use of iterative reconstruction technique. DLP: 1391 mGy*cm COMPARISON: None. FINDINGS: LUNG BASES: Lung bases are clear. HEART: Visualized heart is normal. ABDOMEN: LIVER: Hepatic steatosis. GALLBLADDER AND BILE DUCTS: Cholelithiasis. No acute cholecystitis. No ductal dilation. PANCREAS: Unremarkable. No mass. No ductal dilation. SPLEEN: Unremarkable. No splenomegaly. ADRENALS: Unremarkable. No mass. KIDNEYS AND URETERS: Unremarkable. No solid mass. No hydronephrosis. STOMACH AND BOWEL: Unremarkable. No obstruction. No mucosal thickening. PELVIS: APPENDIX: The appendix is seen and is within normal limits. BLADDER: Unremarkable. No mass. REPRODUCTIVE: Bilateral ovarian cysts measuring up to 2.6 cm on the right. ABDOMEN and PELVIS: INTRAPERITONEAL SPACE: Unremarkable. No free air. No significant fluid collection. BONES/JOINTS: Bilateral hip joints changes. No acute fracture. No dislocation. SOFT TISSUES: Unremarkable. VASCULATURE: Unremarkable. No abdominal aortic aneurysm. LYMPH NODES: Unremarkable. No enlarged lymph nodes. IMPRESSION: 1. No acute abdominal or pelvic abnormality. 2. Hepatic steatosis. 3. Cholelithiasis. No acute cholecystitis. 4. Bilateral ovarian cysts measuring up to 2.6 cm on the right. No follow-up imaging is recommended . Reference: US recommendations based on Radiology 2010 Sep;256(3):943-54; CT/MR recommendations based on J Am Con Radiol 2013;10:675-681. Electronically signed by: Joe Méndez DO 12/26/2020 11:19 PM LINEN ROOM ATTENDANT Due to temporary technical issues with the PACS/Fluency reporting system, reports are being signed by the in house radiologist without review as a courtesy to ensure prompt reporting. The interpreting r adiologist is fully responsible for the content of the report.
== END 2020-12-27 01:02 | disposition home or self-care (01) ==
LOC: ER 20:44
DX: K80.20 Calculus of gallbladder without cholecystitis without obstruction (principal); R10.13 Epigastric pain
CPT/HCPCS: 93005; 85025; 80048; 36415; 81025; 80076; 84484; 83690; 74177; 71045; Q9967; J2765; J7030; J2405; 81003; 81015; 96361; 96374; 96375; 99285